=== PATIENT | male | born 1930 | race Caucasian/White ===

== ENCOUNTER 2017-07-17 21:55 | Emergency (ER) | payer MEDICARE, OTHER ==
[~2017-07-17] VITALS: Ht 180.3 cm; Wt 78.9 kg
[2017-07-17] MEDS ORDERED: BENZ100A PO (22:49)
[2017-07-17] MEDS ORDERED: DEXT30SU PO (22:49)
== END 2017-07-17 23:43 | disposition home or self-care (01) ==
LOC: ER 21:55
DX: J40 Bronchitis, not specified as acute or chronic (principal); I10 Essential (primary) hypertension
CPT/HCPCS: 71046; 99282